=== PATIENT | female | born 1990 ===

== ENCOUNTER → 2021-12-24 13:19 | Outpatient (RCR) | payer OTHER, SELFPAY ==
[2020-06-12 08:27] LABS: SARS-COV-2 PCR UMBRL NEGATIVE
== END | disposition home or self-care (01) ==
LOC: HO.EMPCOV 06-10 13:32
PROVIDERS: Internal Medicine; Visit Provider Internal Medicine
DX: Z20.828 Contact with and (suspected) exposure to other viral communicable diseases (principal)
CPT/HCPCS: 36415; U0003

== ENCOUNTER 2022-07-27 01:11 | Emergency (ER) | payer OTHER, SELFPAY ==
[2022-07-27 01:13] VITALS: BP 138/72; PULSE 77; RESP 20; TEMP 36.3; O2SAT 100; BMI 23.6
--- NOTE | 2022-07-27 02:35 | ED_ITS ---
HPI - Ear Problem General Chief complaint: Ear Problems Stated complaint: Ear infection Time Seen by Provider: 07/27/22 02:20 Source: patient Mode of arrival: ambulatory Limitations: no limitations History of Present Illness HPI Narrative: Left ear pain. Patient been complaining of left ear pain for 1 day, patient is prone to ear infection due to left nostril polyp, patient is on steroid course as better her ENT recommendations. No recent swimming, no ear trauma. No fever, no chills. Patient has multiple ear infection in the past. Related Data Previous Rx's Medication Instructions Recorded amoxicillin 500 mg-potassium 1 tab PO BID #14 tabs 07/27/22 clavulanate 125 mg tablet (Augmentin) Allergies Allergy/AdvReac Type Severity Reaction Status Date / Time No Known Allergies Allergy Verified 07/27/22 01:17 Review of Systems Review of Systems: All other systems are reviewed and are negative Constitutional: Reports as per HPI and Reports no additional constitutional complaints Eyes: Reports as per HPI and Reports no additional eye complaints Reports system reviewed and no additional complaints, except as documented Cardiovascular: Reports as per HPI and Reports no additional cardiovascular complaints Respiratory: Reports as per HPI and Reports no additional respiratory complaints Gastrointestinal: Reports as per HPI and Reports no additional gastrointestinal complaints Genitourinary: Reports no additional female genitourinary complaints Musculoskeletal: Reports no additional musculoskeletal complaints Skin/Breast: Reports system reviewed and no additional complaints, except as docu Psychiatric: Reports no additional psychiatric complaints Endocrine: Reports no additional endocrine complaints Hematologic/Lymphatic: Reports no additional hematologic/lymphatic complaints Allergic/Immunologic: Reports no additional allergic/immunologic complaints Reports system reviewed and no additional complaints, except as documented and Reports Abnormal speech present Physical Exam Vital Signs: Vital Signs: Last Vital Signs Temp 97.4 F 07/27/22 01:13 Pulse 77 07/27/22 01:13 Resp 20 07/27/22 01:13 BP 138/72 07/27/22 01:13 Pulse Ox 100 07/27/22 01:13 O2 Del Method Room Air 07/27/22 01:13 BMI result Body Mass Index 23.6 Vital signs have been reviewed as appeared to be correct. Blood pressure parish l. Heart rate normal. Respiration rate normal. Temperature normal. Oxygen saturation normal. Appearance: Alert. Oriented X3. No acute distress. Head: Normal external exam. Normocephalic. Atraumatic. No Cruz signs noted. No raccoon eyes noted Eyes: PERRLA. EOMI. Conjunctiva and sclera normal. Eyelids normal. ENT: Left nostril polyp, left TM erythema with tenderness, clear left external auditory canal. Neck: Normal inspection. Neck supple. FROM. No adenopathy. Thyroid Normal. No meningeal signs. No neck mass noted. CVS: Normal heart rate and rhythm. Heart sound normal. No murmurs noted. Pulses normal throughout. Respiratory: No respiratory distress. Painless inspiration. Breath sounds normal. No wheezes/rales/rhonchi noted. Chest nontender. No accessory muscle usage noted or decreased air movement noted. Abdomen: Soft and nontender. Bowel sounds normal in all 4 quadrants. No distention noted. No organomegaly noted. No visible injury noted. Back: No CVA tenderness. Full range of motion noted. Skin: Skin warm and dry. Normal skin color. Normal skin turgor. No rashes/lesions/lacerations noted. Extremities: No lower extremity edema. Extremities exhibit normal range of motion. Extremities nontender. Neuro: Oriented X 3. Cranial nerve exam: II-XII are grossly intact No motor deficit. No sensory deficit. Reflexes normal. Course Course Course Narrative: Left otitis media Medical Decision Making Differential Diagnosis Differential Diagnoses: The differential diagnosis associated with the presentation includes (Otitis media, otitis externa, ruptured ear drum, mastoiditis.) Discharge Plan Discharge Clinical Impression: Otitis media Patient Disposition: Home, Self-Care Instructions: Ear Infection (ED) Prescriptions: New amoxicillin-pot clavulanate [Augmentin] 500-125 mg tablet 1 tab PO BID Qty: 14 0RF Referrals: Eloisa Acuña MD [Primary Care Provider] - Stand Alone Forms: Work/School Release
[2022-07-27] MEDS: Amoxicillin/Potassium Clav 875 MG TABLET PO (02:39)
== END 2022-07-27 02:49 | disposition home or self-care (01) ==
LOC: HO.ED 02:43
PROVIDERS: Emergency Provider Emergency Medicine; PCP Internal Medicine
DX: H66.92 Otitis media, unspecified, left ear (principal); J33.9 Nasal polyp, unspecified
CPT/HCPCS: 99282; 99283

== ENCOUNTER 2022-10-15 23:18 | Emergency (ER) | payer OTHER, SELFPAY ==
--- NOTE | 2022-10-15 | ECG_ITS ---
Test Reason : CHEST PAIN Blood Pressure : / mmHG Vent. Rate : 072 BPM Atrial Rate : 072 BPM P-R Int : 142 ms QRS Dur : 078 ms QT Int : 362 ms P-R-T Axes : 045 039 030 degrees QTc Int : 396 ms Normal sinus rhythm Cannot rule out Anterior infarct , age undetermined Abnormal ECG No previous ECGs available Referred By: Generic ED Physician Electronically Signed By:Eliseo Wilks
--- NOTE | ~2022-10-15 | XR_ITS ---
EXAMINATION: XR CHEST CLINICAL INFORMATION: Chest pain. COMPARISON: None available. TECHNIQUE: 2 views of the chest were obtained. FINDINGS: The cardiomediastinal silhouette is normal. There is no focal lung consolidation or pleural effusion. The bony structures and soft tissues are unremarkable. XR/XR chest 2V IMPRESSION: No active cardiopulmonary disease.
[2022-10-15 23:33] VITALS: BP 99/59; PULSE 81; RESP 18; TEMP 37; O2SAT 97; BMI 23.8
--- OUTSIDE RECORDS SUMMARY | 2022-10-16 00:01 | XMS_ITS | Continuity of Care Document ---
Author Name Unknown Organization [facility] Address [address] [place] [address]- Care Team Providers Care Client Engagement Manager Name Role Phone Eloisa Acuña MD Primary Care Physician Encounter [facility] [place] Date(s): 04/01/20 - 05/01/20 [facility] [address] [place] [address]- Attending Physician: Admrafi, Twila Admitting Physician: Admtr, [id number] Referring Physician: Admtr, [id number] Allergies, Adverse Reactions, Alerts No Known Medication Allergies Medications Flonase 50 mcg/inh nasal spray 2 sprays, Nares, Both, Daily, # 16 Gm, 0 Refills, Maintenance, 10/17/19 12:19:00 EDT, [place], [facility], 2 sprays Nares, Both Daily, 154.5, cm, 10/17/19 11:41:00 EDT, Height Start Date: 10/17/19 Status: Ordered loratadine 10 mg oral tablet 10 mg, 1, tablet, By Mouth, Daily, # 90 tablet, Refills 1, Tot. Refills 1, Maintenance, 10/17/19 12:20:00 EDT, Route to Pharmacy Electronically, [facility], 154.5, cm, 10/17/19 11:41:00 EDT, Height Start Date: 10/17/19 Stop Date: 04/14/20 Status: Ordered omeprazole 20 mg oral delayed release tablet 1 tablet = 20 mg, By Mouth, Daily, # 14 tablet, 0 Refills, Maintenance, 09/26/19 9:13:00 EDT, [place] Tablet, [facility], 153, cm, 09/25/19 12:49:00 EDT, Height Start Date: 09/26/19 Stop Date: 10/10/19 Status: Ordered Tri-Sprintec oral tablet TAKE ONE TABLET BY MOUTH EVERY DAY Start Date: 10/17/19 Status: Ordered Problem List Condition Effective Dates Status Health Status Inform ant Chronic nasal congestion(Confirmed) Active Thrombocytosis(Confirmed) Active Social History Social History Type Response Smoking Status Never (less than 100 in lifetime) entered on: 12/21/18 Sex
--- OUTSIDE RECORDS SUMMARY | 2022-10-16 00:01 | XMS_ITS | Continuity of Care Document ---
Author Name Unknown Organization [facility] ter Address [address] [place] [address]- Care Team Providers Care Poker Dealer Name Role Phone Eloisa Acuña MD Primary Care Physician [phone] [place] [facility] [place] 11/12/[address] [address]- Discharge Disposition: A-D/C Home Attending Physician: Garrick Naranjo MD Admitting Physician: Garrick Naranjo MD Referring Physician: Garrick Naranjo MD Allergies, Adverse Reactions, Alerts No Known Medication Allergies Immunizations Given and Recorded Vaccine Date Status Refusal Reason influenza virus vaccine, inactivated 12/06/18 Scott rded tetanus/diphtheria/pertussis, acel(Tdap) 08/03/18 Recorded tetanus/diphtheria/pertussis, acel(Tdap) 11/18/17 Recorded tetanus/diphtheria/pertussis, acel(Tdap) 01/24/07 Recorded hepatitis B adult vaccine 11/18/17 Recorded Meningococcal Conjugate Vaccine 02/07/15 Recorded Meningococcal Conjugate Vaccine 01/24/07 Recorded Flu Vaccine 12/05/13 Recorded tetanus-diphtheria toxoids (Td) 11/06/02 Recorded diphtheria/tetanus/pertussis, acel(DTaP) 05/22/97 Recorded diphtheria/tetanus/pertussis, acel(DTaP) 05/21/96 Recorded diphtheria/tetanus/pertussis, acel(DTaP) 03/20/93 Recorded diphtheria/tetanus/pertussis, acel(DTaP) 03/26/92 Recorded diphtheria/tetanus/pertussis, acel(DTaP) 01/25/92 Recorded diphtheria/tetanus/pertussis, acel(DTaP) 91 Recorded Measles/Mumps/Rubella Virus Vaccine 01/02/96 Recor ded Measles/Mumps/Rubella Virus Vaccine 12/29/92 Recor ded hepatitis B pediatric vaccine 09/04/92 Recorded hepatitis B pediatric vaccine 91 Recorded hepatitis B pediatric vaccine 91 Recorded Medications Flonase 50 mcg/inh nasal spray 2 sprays, Nares, Both, Daily, # 16 Gm, 0 Refills, Maintenance, 10/17/19 12:19:00 EDT, [place], [facility], 2 sprays Nares, Both Daily, 154.5, cm, 10/17/19 11:41:00 EDT, Height Start Date: 10/17/19 Status: Ordered loratadine 10 mg oral tablet 10 mg, 1, tablet, By Mouth, Daily, # 90 tablet, Refills 1, Tot. Refills 1, Maintenance, 10/17/19 12:20:00 EDT, Route to Pharmacy Electronically, [facility], 154.5, cm, 10/17/19 11:41:00 EDT, Height Start Date: 10/17/19 Stop Date: 04/14/20 Status: Ordered omeprazole 20 mg oral delayed release tablet 1 tablet = 20 mg, By Mouth, Daily, # 14 tablet, 0 Refills, Maintenance, 09/26/19 9:13:00 EDT, CR Tablet, [facility], 153, cm, 09/25/19 12:49:00 EDT, Height Start Date: 09/26/19 Stop Date: 10/10/19 Status: Ordered Tri-Sprintec oral tablet TAKE ONE TABLET BY MOUTH EVERY DAY Start Date: 10/17/19 Status: Ordered Problem List Condition Effective Dates Status Health Status Inform ant Chronic nasal congestion(Confirmed) Active Vital Signs Most recent to oldest [Reference Range]: 1 2 3 Height 152.40 cm (11/12/20 12:31 PM) 152.40 cm (10/27/20 5:59 PM) Weight 56.7 kg (11/12/20 12:31 PM) 57.73 kg (10/27/20 5:59 PM) Oxygen Saturation [94-100 %] 99 % (11/12/20 5:15 PM) 100 % (11/12/20 5:00 PM) 100 % (11/12/20 4:45 PM) Pulse Rate [55-90 bpm] 86 bpm (11/12/20 12:31 PM) Body Mass Index [18.5-24.99] 24.41 (11/12/20 12:31 PM) 24.86 (10/27/20 5:59 PM) Blood Pressure [90-138/55-84 mm Hg] 132/83mm Hg (11/12/20 5:15 PM) 135/80mm Hg (11/12/20 5:00 PM) 140/88mm Hg *H* (11/12/20 4:45 PM) Respiratory Rate [16-30 br/min] 13 br/min *L* (11/12/20 5:15 PM) 11 br/min *L* (11/12/20 5:00 PM) 12 br/min *L* (11/12/20 4:45 PM) Temperature [96.8-100.4 DegF] 98.5 DegF (11/12/20 5:15 PM) 98.2 DegF (11/12/20 4:30 PM) 99.5 DegF (11/12/20 12:31 PM) Liters per Minute 5 L/min (11/12/20 4:30 PM) Mode of Delivery (Oxygen) Room air (11/12/20 6:26 PM) Room air (11/12/20 5:15 PM) Room air (11/12/20 5:00 PM) Blood pressure sites Arm, right (11/12/20 4:30 PM) Arm, left (11/12/20 12:31 PM) Temperature Route Temporal (11/12/20 5:15 PM) Temporal (11/12/20 4:30 PM) Temporal (11/12/20 12:31 PM) Dry Weight 56.7 kg (11/12/20 12:31 PM) 57.73 kg (10/27/20 5:59 PM) Weight Obtained Via Standing scale (11/12/20 12:31 PM) Patient/family stated (10/27/20 5:59 PM) Dry Weight Obtained Via Standing scale (11/12/20 12:31 PM) Patient/family stated (10/27/20 5:59 PM) Social History Social History Type Response Smoking Status Never (less than 100 in lifetime) entered on: 12/21/18 Sex
--- OUTSIDE RECORDS SUMMARY | 2022-10-16 00:01 | XMS_ITS | Continuity of Care Document ---
Author Name Unknown Organization [facility] Address [address] [place] [address]- Care Team Providers Care Clay Transporter Name Role Phone Eloisa Acuña MD Primary Care Physician Encounter [facility] [place] Date(s): 01/01/22 - 01/01/[address] [address]- Discharge Disposition: A-D/C Home Attending Physician: Maddy Kevin MD Admitting Physician: Maddy Kevin MD Referring Physician: Maddy Kevin MD Allergies, Adverse Reactions, Alerts No Known [...] Gm, 0 Refills, Maintenance, 10/17/19 12:19:00 EDT, [place], [facility], 2 sprays Nares, Both Daily, 154.5, cm, 10/17/19 11:41:00 EDT, Height Start Date: 10/17/19 Status: Ordered Problem List Condition Confirmation Course Effective Dates Status Health St atus Informant Change in bowel habits Confirmed Active Chronic nasal congestion Confirmed Active Rectal bleed Confirmed Active Vital Signs Most recent to oldest [Reference Range]: 1 2 3 Oxygen Saturation [94-100 %] 98 % (01/01/22 10:35 AM) 98 % (01/01/22 10:30 AM) 98 % (01/01/22 9:09 AM) Pulse Rate [55-90 bpm] 79 bpm (01/01/22 9:09 AM) Blood Pressure [90-138/55-84 mm Hg] 111/60mm Hg (01/01/22 10:35 AM) 95/58mm Hg (01/01/22 10:30 AM) 105/71mm Hg (01/01/22 9:09 AM) Respiratory Rate [16-30 br/min] 16 br/min (01/01/22 10:40 AM) 16 br/min (01/01/22 10:35 AM) 20 br/min (01/01/22 10:30 AM) Temperature [96.8-100.4 DegF] 99.4 DegF (01/01/22 9:09 AM) Mode of Delivery (Oxygen) Room air (01/01/22 10:45 AM) Room air (01/01/22 10:40 AM) Room air (01/01/22 10:35 AM) Blood pressure sites Arm, left (01/01/22 10:30 AM) Arm, left (01/01/22 9:09 AM) Temperature Route Temporal (01/01/22 9:09 AM) Dry Weight 53.7 kg (01/01/22 9:09 AM) Dry Weight Obtained Via Standing scale (01/01/22 9:09 AM) Social History Social History Type Response Smoking Status Never (less than 100 in lifetime) entered on: 12/21/18 Sex Patient Care team information Personnel Name: Eloisa Acuña MD Address: Address: [address] [place] [address], [address] [place], [place] [address]
--- OUTSIDE RECORDS SUMMARY | 2022-10-16 00:01 | XMS_ITS | Continuity of Care Document ---
Author Name Unknown Organization [facility] [place] Address [address] [place] [address]- Care Team Providers Care Felting Machine Operator Name Role Phone Eloisa Acuña MD Primary Care Physician Encounter 06/06/20 - 06/13/20 [facility] [place] [address], [address] [place] [address]- Attending Physician: Eloisa Acuña MD Admitting Physician: Eloisa Acuña MD Referring Physician: Eloisa Acuña MD Allergies, Adverse Reactions, Alerts No Known Medication Allergies Medications Flonase 50 mcg/inh nasal spray 2 sprays, Nares, Both, Daily, # 16 Gm, 0 Refills, Maintenance, 10/17/19 12:19:00 EDT, [place], [facility], 2 sprays [...]
--- OUTSIDE RECORDS SUMMARY | 2022-10-16 00:02 | XMS_ITS | Continuity of Care Document ---
Author Name Unknown Organization [facility] Address [address] [place] [address]- Care Team Providers Care Asp Net Software Developer Name Role Phone Arianne HINTON, Eloisa Jha Primary Care Physician Encounter [facility] [place] Date(s): 11/19/19 - 12/19/19 [facility] [address] [place] [address]- [facility] Allergies, Adverse Reactions, Alerts No Known Medication Allergies Medications Flonase 50 mcg/inh nasal spray 2 sprays, Nares, Both, Daily, # 16 Gm, 0 Refills, Maintenance, 10/17/19 12:19:00 EDT, [place], [facility], 2 sprays [...]
--- OUTSIDE RECORDS SUMMARY | 2022-10-16 00:02 | XMS_ITS | Continuity of Care Document ---
Author Name Unknown Organization [facility] Address [address] [place] [address]- Care Team Providers Care Teletype Mechanic Name Role Phone Eloisa Acuña MD Primary Care Physician [phone] [place] [facility] [place] 03/04/22 [facility] [address] [place] [address]- Allergies, Adverse Reactions, Alerts No Known Medication [...] Gm, 0 Refills, Maintenance, 10/17/19 12:19:00 EDT, [place], [facility], 2 sprays Nares, Both Daily, 154.5, cm, 10/17/19 11:41:00 EDT, Height Start Date: 10/17/19 Status: Ordered omeprazole 20 mg oral enteric coated capsule 1 capsule = 20 mg, By Mouth, Daily, # 30 capsule, 0 Refills, Maintenance, 01/14/22 16:13:00 EST, [place], [facility], Partial fill upon patient request if the prescription is fora schedule II opioid drug., 158, cm, 11/11/21 11:41:00... Start Date: 01/14/22 Status: Ordered Problem List Condition Confirmation Course Effective Dates Status Health St atus Informant Change in bowel habits Confirmed Active Chronic nasal congestion Confirmed Active Rectal bleed Confirmed Active Social History Social History Type Response Smoking Status Never (less than 100 in lifetime) entered on: 12/21/18 Sex Patient Care team information Care Team Personnel Name: Arianne HINTON, Eloisa Jha Position: S Primary Care Physician Member Role: PCP Address: Address: [address] [place] [address], [address] [place] [address]- [place] Care Team Related Persons Name: SHELBI TATUM Address: home [address] [place] [address] Name: VALARIE DE LA CRUZ Address: home [address] [place] [address]
--- OUTSIDE RECORDS SUMMARY | 2022-10-16 00:02 | XMS_ITS | Continuity of Care Document ---
Author Name Unknown Organization [facility] Address [address] [place] [address]- Care Team Providers Care Linting Machine Operator Name Role Phone Eloisa Acuña MD Primary Care Physician [place] [facility] [place] 01/15/20 [facility] [address] [place] [address]- Discharge Disposition: A-D/C Home Attending Physician: Ellen Mathur MD Admitting Physician: Ellen Mathur MD Referring Physician: Eloisa Acuña MD Allergies, Adverse Reactions, Alerts No Known Medication Allergies Medications Flonase 50 mcg/inh nasal spray 2 sprays, Nares, Both, Daily, # 16 Gm, 0 Refills, Maintenance, 10/17/19 12:19:00 EDT, [place], [facility], 2 sprays [...]
--- OUTSIDE RECORDS SUMMARY | 2022-10-16 00:03 | XMS_ITS | Continuity of Care Document ---
Author Name Unknown Organization [facility] Address [address] [place] [address]- Care Team Providers Care Superintendent Factory Name Role Phone Eloisa Acuña MD Primary Care Physician [phone] Encounter [facility] [place] Date(s): 04/01/20 - 07/16/20 [facility] [address] [place] [address]- Discharge Disposition: A-D/C Home Attending Physician: Ellen Mathur MD Admitting Physician: Ellen Mathur MD Referring Physician: Eloisa Acuña MD Allergies, Adverse Reactions, Alerts No Known Medication Allergies Medications Flonase 50 mcg/inh nasal spray 2 sprays, Nares, Both, Daily, # 16 Gm, 0 Refills, Maintenance, 10/17/19 12:19:00 EDT, [place], [facility], 2 sprays [...]
[2022-10-16 00:07] LABS: MANUAL DIFF FLAG NO
[2022-10-16 00:08] LABS: Basophils Absolute Auto 0.1 X10*3/uL (0.0-0.2); Basophils Percent Auto 1.2 % (0-2); Eosinophils Absolute Auto 0.7 X10*3/uL (0.0-0.4); Eosinophils Percent Auto 8.5 % (0-4); Hematocrit 38.8 % (37.0-47.0); Hemoglobin 12.1 g/dl (12.0-16.0); Imm Gran Abs Auto 0.01 X10*3/uL (0.00-0.03); Imm Gran Pct Auto 0.1 % (0.0-0.4); Lymphocytes Absolute Auto 3.3 X10*3/uL (1.2-4.9); Lymphocytes Percent Auto 38.9 % (20-40); Mean Corpuscular HGB Conc 31.2 g/dl (31.0-35.0); Mean Corpuscular Hemoglobin 24.6 pg (27.0-33.0); Monocytes Absolute Auto 0.7 X10*3/uL (0.1-1.2); Monocytes Percent Auto 8.5 % (2-11); Neutrophils Absolute Auto 3.6 x10*3/uL (2.0-8.3); Neutrophils Percent Auto 42.8 % (45-73); Platelet Count 362 X10*3/uL (160-400); Red Blood Count 4.91 X10*6/uL (4.20-5.50); Red Cell Distribution Width 12.8 % (11.0-16.0); White Blood Count 8.4 X10*3/uL (4.8-10.8)
[2022-10-16 00:23] LABS: Alanine Aminotransferase 11 U/L (0-31); Albumin Level 4.2 g/dL (3.5-5.0); Alkaline Phosphatase 91 U/L (39-117); Anion Gap 12 (12-20); Aspartate Amino Transferase 17 U/L (5-31); Bilirubin Total 0.1 mg/dL (0.0-1.0); Blood Urea Nitrogen 13 mg/dL (9-16); Carbon Dioxide 26 mmol/L (22-29); Chloride 107 mmol/L (96-108); Creatinine Clr Calc Pharmacy 87.1; Estimated Glomerular Filt Rate > 60; Glucose Random 93 mg/dL (60-115); Sodium 141 mmol/L (135-145); Total Protein 7.4 g/dL (6.5-8.0)
[2022-10-16 00:33] LABS: Troponin-I High Sensitivity < 2.7 ng/L (<3.5-17.0)
[2022-10-16 01:39] VITALS: BP 108/63; PULSE 65; RESP 17; TEMP 36.9; O2SAT 95
[2022-10-16 02:00] LABS: HCG Quantitative < 2 mIU/mL
[2022-10-16 02:42] VITALS: BP 105/57; PULSE 56; RESP 18; TEMP 37.2; O2SAT 98
[2022-10-16 03:20] LABS: Appearance Urine Clear; Color Urine Yellow; Glucose Urine UA Negative (Negative); Leukocyte Esterase Urine Trace (Negative); Nitrite Urine Negative (Negative); PH 6.5 (5.0-9.0); UMIC TRIGGER UACC YES; Urine Blood Negative (Negative); Urine Ketones Negative (Negative); Urine Protein Negative (Neg-Trace)
[2022-10-16 03:22] LABS: Bacteria Urine Trace (None Seen); Hyaline Casts Urine 0-2 /LPF (0-2); RBC Urine 0-2 /HPF (0-2); WBC Urine 0-5 /HPF (0-5)
--- NOTE | 2022-10-16 03:32 | ED.CHESTPAIN ---
HPI - Chest Pain General Chief Complaint: Chest Pain Stated Complaint: Chest pain, shortness of breath Time Seen by Provider: 10/16/22 03:23 Source: patient Mode of arrival: ambulatory Limitations: no limitations History of Present Illness HPI narrative: Patient comes to the emergency room complaining of intermittent chest pain and occasional shortness of breath. At this time, patient is asymptomatic. Her symptoms have been intermittently going for approximately 2 weeks Related Data Previous Rx's ?Medication ?Instructions ?Recorded amoxicillin 500 mg-potassium 1 tab PO BID #14 tabs 07/27/22 clavulanate 125 mg tablet (Augmentin) Allergies Allergy/AdvReac Type Severity Reaction Status Date / Time No Known Allergies Allergy Verified 07/26/23 15:28 Review of Systems Review of Systems: Constitutional : No Weight loss, No Fever, No Chills, No Night Sweats, No Fatigue, No Malaise ENT/Mouth : No Hearing loss, No Ear Pain, No Nasal Congestion, No Sinus Pain, No Hoarseness, No sore throat, No Rhinorrhea, No Swallowing Difficulty Eyes: No Eye Pain, No Swelling, No Redness, No Foreign Body, No Discharge, No Vision Changes Cardiovascular : Intermittent chest pain or shortness of breath, no symptoms at this time. No SOB, No Dyspnea on Exertion, No Orthopnea, No Edema, No Palpitations Respiratory : No Cough, No Sputum, No Wheezing, No Smoke Exposure, No Dyspnea Gastrointestinal : No Nausea, No Vomiting, No Diarrhea, No Constipation, No abdominal Pain, No Hematochezia, No Melena Genitourinary : no irregular bleeding, No Dysuria, No Urinary Frequency, No Hematuria, No Urinary Incontinence, No Urgency, No Flank Pain, No Urinary Flow Changes, No Hesitancy Musculoskeletal : No joint pain, No Myalgias, No Joint Swelling Skin : No Skin Lesions, No rash Neuro : No Weakness, No Numbness, No Paresthesias, No Loss of Consciousness, No Dizziness, No Headache Psych : No Anxiety/Panic, No Depression, No SI/HI/AH/VH, No Social Issues, Heme/Lymph: No Bruising, No Bleeding,No Lymphadenopathy Endocrine : No Polyuria, No Polydipsia, No Temperature Intolerance PMFSH Social History Social History Alcohol intake: never Advance Directives: No Advance Directives Information Provided: No Physical Exam Vital Signs: Vital Signs: Last Vital Signs Temp 98.9 F 10/16/22 02:42 Pulse 56 10/16/22 02:42 Resp 18 10/16/22 02:42 BP 105/57 L 10/16/22 02:42 Pulse Ox 98 10/16/22 02:42 O2 Del Method Room Air 10/16/22 02:42 BMI result Body Mass Index 23.8 Const: Other: Appearance: Alert. Oriented X3. No acute distress. Eyes: Pupils equal, round and reactive to light. ENT: Pharynx normal. Neck: Normal inspection. Neck supple. No lymph nodes noted. No crepitus CVS: Normal heart rate and rhythm. Pulses normal. Normal S1 and S2 Respiratory: No respiratory distress. Breath sounds normal. No Wheezing. No rales Abdomen: Soft and nontender. No rigidity. No distention. Skin: Skin warm and dry. Normal skin color. Normal skin turgor. Extremities: No lower extremity edema. No Lacerations. No Rash Neuro: Oriented X 3. No motor deficit. No sensory deficit. Moving all extremities. No slurred speech. CN 2 through 12 grossly intact Psych: calm, cooperative, normal affect Medical Decision Making Medical Decision Making [facility] Narrative: My interpretation of EKG: Normal sinus rhythm, heart rate 72, no ST segment depression or elevation, no T-wave inversion, QTC of 396 -my interpretation of chest x-ray, normal no effusions, no pneumonia no fractures Differential Diagnosis Differential Diagnoses: The differential diagnosis associated with the presentation includes (ACS, costochondritis, pleurisy) Admission/Observation Consideration of admission/observation: Escalation of care including admission/observation considered (Patient came in complaining of intermittent chest pain, admission was considered) Lab Data [facility] Lab Attestation statement: I reviewed the patient's lab results. 10/16/22 00:03 10/16/22 00:03 Labs: Lab Results 10/16/22 10/16/22 Range/Units 00:03 03:05 WBC 8.4 (4.8-10.8) X10*3/uL RBC 4.91 (4.20-5.50) X10*6/uL Hgb 12.1 (12.0-16.0) g/dl Hct 38.8 (37.0-47.0) % MCV 79.0 L (80.0-98.0) fL MCH 24.6 L (27.0-33.0) pg MCHC 31.2 (31.0-35.0) g/dl RDW 12.8 (11.0-16.0) % Plt Count 362 (160-400) X10*3/uL MPV 9.0 L (9.4-12.3) fL Immature Gran % (Auto) 0.1 (0.0-0.4) % Neut % (Auto) 42.8 L (45-73) % Lymph % (Auto) 38.9 (20-40) % [place] % (Auto) 8.5 (2-11) % Eos % (Auto) 8.5 H (0-4) % Baso % (Auto) 1.2 (0-2) % Lymph # (Auto) 3.3 (1.2-4.9) X10*3/uL [place] # (Auto) 0.7 (0.1-1.2) X10*3/uL Eos # (Auto) 0.7 H (0.0-0.4) X10*3/uL Baso # (Auto) 0.1 (0.0-0.2) X10*3/uL Abs Immat Gran (auto) 0.01 (0.00-0.03) X10*3/uL Absolute Neuts (auto) 3.6 (2.0-8.3) x10*3/uL Absolute Nucleated RBC 0.000 (0.0-0.012) X10*3/uL Nucleated RBC % (auto) 0.0 (0.0-0.2) /100WBC Sodium 141 (135-145) mmol/L Potassium 4.0 (3.3-5.1) mmol/L Chloride 107 (96-108) mmol/L Carbon Dioxide 26 (22-29) mmol/L Anion Gap 12 (12-20) BUN 13 (9-16) mg/dL Creatinine 0.73 (0.5-1.4) mg/dL Estim Creat Clear Calc 87.1 Estimated GFR > 60 Random Glucose 93 (60-115) mg/dL Calcium 10.0 (8.4-10.2) mg/dL Total Bilirubin 0.1 (0.0-1.0) mg/dL AST 17 (5-31) U/L ALT 11 (0-31) U/L Alkaline Phosphatase 91 (39-117) U/L Troponin I High Sens < 2.7 (<3.5-17.0) ng/L Total Protein 7.4 (6.5-8.0) g/dL Albumin 4.2 (3.5-5.0) g/dL Beta HCG, Quant < 2 mIU/mL Urine Color Yellow Urine Appearance Clear Urine pH 6.5 (5.0-9.0) Ur Specific [place] 1.010 (1.005-1.025) Urine Protein Negative (Neg-Trace) mg/dL Urine Glucose (UA) Negative (Negative) mg/dL Urine Ketones Negative (Negative) mg/dL Urine Blood Negative (Negative) Urine Nitrite Negative (Negative) Ur Leukocyte Esterase Trace H (Negative) Urine RBC 0-2 (0-2) /HPF Urine WBC 0-5 (0-5) /HPF Ur Squamous Epith Cells 6-10 (0-2) /HPF Urine Bacteria Trace (None Seen) Hyaline Casts 0-2 (0-2) /LPF Independent Interpretation I performed an independent interpretation of an: EKG and Plain X-Ray Radiology Impression Discussion of test interpretation with radiology: I have reviewed the radiologist's reading. Radiologist Impression: INDINGS: The cardiomediastinal silhouette is normal. There is no focal lung consolidation or pleural effusion. The bony structures and soft tissues are unremarkable. XR/XR chest 2V IMPRESSION: No active cardiopulmonary disease. Critical Care Time Critical Care Time Critical Care Time: Yes Total Critical Care Time: 30 Attestation: Needs signature Discharge Plan Discharge Clinical Impression: Atypical chest pain Patient Disposition: Home, Self-Care Instructions: Chest Pain (ED) Additional Instructions: Please follow-up with your primary care physician tomorrow. If you have any worsening or new symptoms, please return to the emergency room or call 911 Prescriptions: No Action amoxicillin-pot clavulanate [Augmentin] 500-125 mg tablet 1 tab PO BID Qty: 14 0RF Interventions: ED Discharge Assessment Last Done: 10/16/22 03:41 Discharge Date/Time: 10/16/22 03:44 Print Language: [place]
== END 2022-10-16 03:44 | disposition home or self-care (01) ==
PROVIDERS: Physician Assistant Medical; Emergency Provider Emergency Medicine; PCP Internal Medicine
DX: R07.89 Other chest pain (principal); R06.02 Shortness of breath
CPT/HCPCS: 36415; 71046; 80053; 81001; 84484; 84702; 85025; 93005; 99283; 99285

== ENCOUNTER → 2022-10-15 23:30 | Outpatient (BNV) | payer OTHER, SELFPAY | PROVIDERS: Emergency Provider Emergency Medicine; PCP Internal Medicine; Visit Provider Internal Medicine Cardiovascular Disease | DX: R94.31 Abnormal electrocardiogram [ECG] [EKG] (principal); R07.9 Chest pain, unspecified | CPT/HCPCS: 93010 ==

== ENCOUNTER 2023-07-26 14:36 | Emergency (ER) | payer OTHER, SELFPAY ==
--- NOTE | 2023-07-26 14:40 | ECG_ITS ---
Test Reason : CHEST PAIN Blood Pressure : / mmHG Vent. Rate : 071 BPM Atrial Rate : 071 BPM P-R Int : 142 ms QRS Dur : 074 ms QT Int : 372 ms P-R-T Axes : 047 038 013 degrees QTc Int : 404 ms Normal sinus rhythm with sinus arrhythmia Normal ECG When compared with ECG of 15-OCT-2022 23:30, No significant change was found Referred By: Generic ED Physician Electronically Signed By:SAMANTHA DUPREE MD
[2023-07-26 14:44] VITALS: BP 118/72; PULSE 86; O2SAT 98
--- NOTE | 2023-07-26 15:24 | ED.GENADULT ---
HPI - General Adult General Chief complaint: Chest Pain Stated complaint: Chest pain of & on yr with sob, per ems Related Data Previous Rx's ?Medication ?Instructions ?Recorded amoxicillin 500 mg-potassium 1 tab PO BID #14 tabs 07/27/22 clavulanate 125 mg tablet (Augmentin) Allergies Allergy/AdvReac Type Severity Reaction Status Date / Time No Known Allergies Allergy Verified 07/26/23 15:28 [facility] Social History Social History Alcohol intake: never Advance Directives: No Advance Directives Information Provided: No Physical Exam ED Vital Signs: Vital Signs - 24 hr 07/26/23 15:25 07/26/23 22:47 Temperature 98.3 F Pulse Rate 74 79 Respiratory Rate 16 16 Blood Pressure 124/32 L 112/54 L Pulse Oximetry 99 100 Oxygen Delivery Method Room Air Room Air BMI result Body Mass Index 25.6 Course Course Course Narrative: This is a Rapid Medical Examination (RME) performed by Emmanuel Peter PA-C in triage. Full HPI, ROS, assessment and treatment plan per primary provider in the Main ED. 32 yo female here for eval of chest pain/ SOB chest pain isolated to left chest/ substernal region, described as sharp, lasting approx 60 seconds. present both at rest and on exertion. at [facility] primary care today, noted to have abnormal EKG. called EMS for transport to ED for eval. patient is currently 7 wks preg. hx of miscarriage in apr 2023. remote hx of OCP use. denies abd pain/ cramping, vaginal bleeding. rrr. lungs are cta b/l. no peripheral edema or jvd. Plan: labs, trop, ekg Reevaluation(s) Reevaluation #1: patient left the ED without completing treatment. Medical Decision Making Lab Data 07/26/23 16:22 07/26/23 16:22 Labs: Lab Results 07/26/23 07/26/23 Range/Units 16: 16:23 WBC 11.9 H (4.8-10.8) X10*3/uL RBC 4.95 (4.20-5.50) X10*6/uL Hgb 12.4 (12.0-16.0) g/dl Hct 38.6 (37.0-47.0) % MCV 78.0 L (80.0-98.0) fL MCH 25.1 L (27.0-33.0) pg MCHC 32.1 (31.0-35.0) g/dl RDW 13.5 (11.0-16.0) % Plt Count 375 (160-400) X10*3/uL MPV 8.6 L (9.4-12.3) fL Immature Gran % (Auto) 0.8 H (0.0-0.4) % Neut % (Auto) 73.3 H (45-73) % Lymph % (Auto) 13.7 L (20-40) % [place] % (Auto) 7.7 (2-11) % Eos % (Auto) 3.9 (0-4) % Baso % (Auto) 0.6 (0-2) % Lymph # (Auto) 1.6 (1.2-4.9) X10*3/uL [place] # (Auto) 0.9 (0.1-1.2) X10*3/uL Eos # (Auto) 0.5 H (0.0-0.4) X10*3/uL Baso # (Auto) 0.1 (0.0-0.2) X10*3/uL Abs Immat Gran (auto) 0.10 H (0.00-0.03) X10*3/uL Absolute Neuts (auto) 8.7 H (2.0-8.3) x10*3/uL Absolute Nucleated RBC 0.000 (0.0-0.012) X10*3/uL Nucleated RBC % (auto) 0.0 (0.0-0.2) /100WBC Sodium 138 (135-145) mmol/L Potassium 4.0 (3.3-5.1) mmol/L Chloride 104 (96-108) mmol/L Carbon Dioxide 24 (22-29) mmol/L Anion Gap 14 (12-20) BUN 7 L (9-16) mg/dL Creatinine 0.58 (0.5-1.4) mg/dL Estim Creat Clear Calc 113.3 Estimated GFR > 60 Random Glucose 72 (60-115) mg/dL Calcium 9.9 (8.4-10.2) mg/dL Magnesium 1.9 (1.6-2.6) mg/dL Total Bilirubin 0.2 (0.0-1.0) mg/dL AST 19 (5-31) U/L ALT 17 (0-31) U/L Alkaline Phosphatase 78 (39-117) U/L Troponin I High Sens < 2.7 (<3.5-17.0) ng/L Total Protein 7.4 (6.5-8.0) g/dL Albumin 4.2 (3.5-5.0) g/dL Lipase 32 (8-78) U/L Discharge Plan Discharge Clinical Impression: Chest pain Patient Disposition: Left W/O Completing Treatment Prescriptions: No Action amoxicillin-pot clavulanate [Augmentin] 500-125 mg tablet 1 tab PO BID Qty: 14 0RF Discharge Date/Time: 07/26/23 23:02
[2023-07-26 15:25] VITALS: BP 124/32; PULSE 74; RESP 16; TEMP 36.8; O2SAT 99; BMI 25.6
[2023-07-26 16:28] LABS: MANUAL DIFF FLAG NO
[2023-07-26 16:31] LABS: Basophils Absolute Auto 0.1 X10*3/uL (0.0-0.2); Basophils Percent Auto 0.6 % (0-2); Eosinophils Absolute Auto 0.5 X10*3/uL (0.0-0.4); Eosinophils Percent Auto 3.9 % (0-4); Hematocrit 38.6 % (37.0-47.0); Hemoglobin 12.4 g/dl (12.0-16.0); Imm Gran Pct Auto 0.8 % (0.0-0.4); Lymphocytes Absolute Auto 1.6 X10*3/uL (1.2-4.9); Lymphocytes Percent Auto 13.7 % (20-40); Mean Corpuscular HGB Conc 32.1 g/dl (31.0-35.0); Mean Corpuscular Hemoglobin 25.1 pg (27.0-33.0); Mean Platelet Volume 8.6 fL (9.4-12.3); Monocytes Absolute Auto 0.9 X10*3/uL (0.1-1.2); Monocytes Percent Auto 7.7 % (2-11); Neutrophils Absolute Auto 8.7 x10*3/uL (2.0-8.3); Neutrophils Percent Auto 73.3 % (45-73); Platelet Count 375 X10*3/uL (160-400); Red Blood Count 4.95 X10*6/uL (4.20-5.50); Red Cell Distribution Width 13.5 % (11.0-16.0); White Blood Count 11.9 X10*3/uL (4.8-10.8)
[2023-07-26 17:08] LABS: Alanine Aminotransferase 17 U/L (0-31); Albumin Level 4.2 g/dL (3.5-5.0); Alkaline Phosphatase 78 U/L (39-117); Anion Gap 14 (12-20); Aspartate Amino Transferase 19 U/L (5-31); Bilirubin Total 0.2 mg/dL (0.0-1.0); Blood Urea Nitrogen 7 mg/dL (9-16); Calcium 9.9 mg/dL (8.4-10.2); Carbon Dioxide 24 mmol/L (22-29); Chloride 104 mmol/L (96-108); Creatinine Clr Calc Pharmacy 113.3; Estimated Glomerular Filt Rate > 60; Glucose Random 72 mg/dL (60-115); Lipase 32 U/L (8-78); Magnesium 1.9 mg/dL (1.6-2.6); Sodium 138 mmol/L (135-145); Total Protein 7.4 g/dL (6.5-8.0)
[2023-07-26 17:16] LABS: Troponin-I High Sensitivity < 2.7 ng/L (<3.5-17.0)
[2023-07-26 22:47] VITALS: BP 112/54; PULSE 79; RESP 16; O2SAT 100
== END 2023-07-26 23:02 | disposition left against medical advice (07) ==
PROVIDERS: Physician Assistant Medical; Emergency Provider Emergency Medicine; PCP Internal Medicine
DX: R07.9 Chest pain, unspecified (principal)
CPT/HCPCS: 36415; 80053; 83690; 83735; 84484; 85025; 93005; 99283

== ENCOUNTER → 2023-07-26 14:40 | Outpatient (BNV) | payer OTHER, SELFPAY | PROVIDERS: Emergency Provider Emergency Medicine; PCP Internal Medicine; Visit Provider Internal Medicine Cardiovascular Disease | DX: R07.9 Chest pain, unspecified (principal) | CPT/HCPCS: 93010 ==